=== PATIENT | male | born 1945 | race Two or more races ===

== ENCOUNTER 2018-10-01 08:17 | Day surgery (SDC) | payer MEDICARE ==
[~2018-10-01] VITALS: Ht 157.5 cm; Wt 59.9 kg
[~2018-10-01 08:17] MED LIST: HEPARIN SODIUM 1,000 UNIT/1ML VIAL IV ONE; NICARDIPINE 100MCG/ML 10ML VIAL (CATH LAB) IV ONE; NITROGLYCERIN 50MCG/ML 10ML VIAL (CATH LAB) IV ONE
[2018-10-01] MEDS ORDERED: IODIXANOL 320MG/ML 100 ML BOTTLE IV ONE (08:54)
[2018-10-01] MEDS ORDERED: LIDOCAINE HCL 1% 20ML VIAL (Pyxis) INJ ONE (08:54)
[2018-10-01] MEDS ORDERED: CLOP75TA4 MT (09:07)
[2018-10-01] MEDS ORDERED: KEPP500 MT (09:07)
[2018-10-01] MEDS ORDERED: ASPI-1158 MT (09:07)
[2018-10-01] MEDS ORDERED: LOSA1TAB37 MT (09:07)
[2018-10-01] MEDS ORDERED: ATOR20TA MT (09:07)
[2018-10-01] MEDS ORDERED: AMLO5TAB88 PO (09:07)
[2018-10-01] MEDS ORDERED: ASPIRIN/SOD BICARB/CITRIC ACID 324MG TAB EFF ONE (09:11)
[2018-10-01 09:14] LABS: HEMATOCRIT 37.3 % (42.0-52.0); MEAN CORPUSCULAR VOLUME 91.7 fL (80.0-94.0); PLATELET 148 x1000/uL (130-400); RED BLOOD CELL COUNT 4.07 mill/uL (4.7-6.1)
[2018-10-01] MEDS ORDERED: FENTANYL CITRATE/PF 50MCG/ML 2ML VIAL ONE (09:17)
[2018-10-01] MEDS ORDERED: MIDAZOLAM HCL 2 MG/2 ML VIAL ONE (09:17)
[2018-10-01] MEDS ORDERED: ATROPINE SULFATE 1MG/10ML SYR IV PRN (10:00)
[2018-10-01] MEDS ORDERED: ONDANSETRON HCL 4MG/2ML INJ IV PRN (10:00)
[2018-10-01] MEDS ORDERED: MORPHINE SULFATE 2 MG/ML CPJ (NOT FOR IM USE) IV PRN (10:00)
[2018-10-01] MEDS ORDERED: ACETAMINOPHEN 325MG TABLET PO PRN (10:00)
== END 2018-10-01 14:45 | disposition home or self-care (01) ==
LOC: CCL 08:17
PROVIDERS: ATTEND Specialist
DX: I25.10 Atherosclerotic heart disease of native coronary artery without angina pectoris (principal); I11.9 Hypertensive heart disease without heart failure; E78.00 Pure hypercholesterolemia, unspecified; Z95.5 Presence of coronary angioplasty implant and graft; Z98.890 Other specified postprocedural states; Z79.82 Long term (current) use of aspirin; Z79.899 Other long term (current) drug therapy; Z85.89 Personal history of malignant neoplasm of other organs and systems
CPT/HCPCS: 36415; 85027; 93458; 99152; C1769; C1893; J1644; J2250; J3010; J3490; Q9967; G0500

== ENCOUNTER → 2020-10-21 | Outpatient (CLI) | payer MEDICARE, BC ==
[~2020-10-21] MED LIST changes: +AMLO5TAB88 PO; +ASPI-1406 MT; +ATOR20TA MT; +CLOP75TA4 MT; -HEPARIN SODIUM 1,000 UNIT/1ML VIAL IV ONE; +KEPP500 MT; +LOSA1TAB37 MT; -NICARDIPINE 100MCG/ML 10ML VIAL (CATH LAB) IV ONE; -NITROGLYCERIN 50MCG/ML 10ML VIAL (CATH LAB) IV ONE
== END | disposition home or self-care (01) ==
LOC: CARD 11:24
PROVIDERS: ATTEND Internal Medicine Critical Care Medicine
DX: R42 Dizziness and giddiness (principal)